=== PATIENT | female | born 1985 | race Caucasian/White ===

== ENCOUNTER 2016-10-20 19:25 | Inpatient (IN) | payer OTHER ==
[2016-10-20 20:59] LABS: BASOPHIL 0.5 % (0-2.0); EOSINOPHIL 0.7 % (0-4.5); MCH 32.6 pg (25.7-33.7); MCHC 34.4 g/dl (32.0-36.0); MEAN CELL VOLUME 94.7 fl (80-96); MEAN PLT VOLUME 8.5 fl (7.5-11.1); NEUTROPHILS 65.8 % (42.8-82.8); PLATELET COUNT 213 K/MM3 (134-434); RDW 14.1 % (11.6-15.6); WHITE BLOOD COUNT 10.6 K/mm3 (4.0-10.0)
[2016-10-20] MEDS ORDERED: DINOPROSTONE 10 MG VAGINAL SUPPOSITORY VG ONE (21:00)
[2016-10-20] MEDS ORDERED: ELECTROLYTE-148 SOLN 1,000 ML IV SCH (21:00)
[2016-10-20 21:18] LABS: ACTIVATED PTT 30.6 SECONDS (26.9-34.4)
[2016-10-20 21:29] LABS: ANION GAP 10 (8-16); CALCIUM 8.8 mg/dL (8.5-10.1); CO2 22 mmol/L (21-32); CREATININE 0.5 mg/dL (0.55-1.02); GLUCOSE,RANDOM 80 mg/dL (74-106)
[2016-10-20 21:38] VITALS: BMI 39.8
[2016-10-20] MEDS ORDERED: TUBERCULIN PPD 5 TU/0.1ML SYRINGE (IN PATIENT USE ONLY) ID ONE (21:45)
--- NOTE | 2016-10-21 01:40 | HP ---
Past Medical History - Admission Chief Complaint: Elective induction History of Present Illness: 31 yo @ 39 weeks gestation with GDMA2 admitted for induction of labor. She has no complaints. History Source: Patient Limitations to Obtaining History: No Limitations - Past Medical History ...: 3 ...Para: 1 ...Term: 1 ...: 0 ...Spon : 1 ...Induced : 0 ...Multiple Gestation: 0 ... Weeks Gestation by Dates: 39.3 ...EDC by Dates: 10/24/16 ...EDC by Sono: 10/27/16 - Past Surgical History Past Surgical History: Yes: None Hx Myomectomy: No Hx Transabdominal Cerclage: No - Smoking History Smoking history: Never smoked Have you smoked in the past 12 months: No - Alcohol/Substance Use Hx Alcohol Use: No History of Substance Use: reports: None - Social History Usual Living Arrangement: Yes: With Spouse History of Recent Travel: No Home Medications - Allergies Allergies/Adverse Reactions: Allergies Allergy/AdvReac Type Severity Reaction Status Date / Time No Known Allergies Allergy Verified 03/06/16 15:36 - Home Medications Home Medications: Ambulatory Orders Glyburide 2.5 mg PO ACDIN 10/13/16 Vit/Iron Fumarate/FA [ Tablet] 1 tablet PO DAILY 10/20/16 Family Disease History - Family Disease History Family History: Unremarkable Review of Systems - Review of Systems Constitutional: reports: No Symptoms Eyes: reports: No Symptoms HENT: reports: No Symptoms Neck: reports: No Symptoms Cardiovascular: reports: No Symptoms Respiratory: reports: No Symptoms Gastrointestinal: reports: No Symptoms Genitourinary: reports: No Symptoms Breasts: reports: No Symptoms Reported Musculoskeletal: reports: No Symptoms Integumentary: reports: No Symptoms Neurological: reports: No Symptoms Endocrine: reports: No Symptoms Hematology/Lymphatic: reports: No Symptoms Psychiatric: reports: No Symptoms Pain Intensity: 0 Physical Exam - Maternity Vital Signs: Vital Signs Temperature 98.4 F 10/20/16 22:00 Pulse Rate 86 10/20/16 22:00 Respiratory Rate 20 10/20/16 22:00 Blood Pressure 97/55 10/20/16 22:00 O2 Sat by Pulse Oximetry (%) Constitutional: Yes: Well Nourished Eyes: Yes: Conjunctiva Clear HENT: Yes: Atraumatic Neck: Yes: Supple, Trachea Midline Cardiovascular: Yes: Regular Rate and Rhythm Lungs: Clear to auscultation - Abdominal Exam/OB Number of Fetuses: Single Presentation: Vertex - Physical Exam Psychiatric: Yes: Alert, Oriented - Labs Lab Results: CBC, BMP 10/20/16 20:45 10/20/16 20:45 Problem List - Problems (1) Gestational diabetes mellitus (GDM) affecting , antepartum Code(s): O24.919 - UNSP DIABETES MELLITUS IN , UNSPECIFIED TRIMESTER Assessment/Plan IUP @ 39 weeks GDMA2 Admit for induction of labor
[2016-10-21] MEDS ORDERED: ELECTROLYTE-148 SOLN 1,000 ML IV SCH (01:45)
--- NOTE | 2016-10-21 08:36 | PN ---
Progress Note (short form) - Note Progress Note: Patient seen and evaluated, she c/o mild discomfort. Cervidil is in place. FHR : Reassuring VE : / -2 A/P : IUP @ 39 weeks GDMA 2 Remove Cervidil in 1 hr and start Pitocin at 10 am Continue BGM Q 4 hrs Anticipate Problem List - Problems (1) Gestational diabetes mellitus (GDM) affecting , antepartum Code(s): O24.919 - UNSP DIABETES MELLITUS IN , UNSPECIFIED TRIMESTER
[2016-10-21] MEDS ORDERED: OXYTOCIN 15 UNITS/ LR 250 ML 250 ML IV SCH (14:00)
[2016-10-21] MEDS ORDERED: PROMETHAZINE HCL 25 MG/1 ML VIAL IVPB ONE (16:45)
[2016-10-21] MEDS ORDERED: BUTORPHANOL TARTRATE 1 MG/ML VIAL IVPB ONE (16:45)
[2016-10-21] MEDS ORDERED: IBUPROFEN 600 MG TABLET (FP) PO PRN (18:35)
[2016-10-21] MEDS ORDERED: WITCH HAZEL 50% (TUCKS) 40 PAD/JAR PAD TP PRN (18:35)
[2016-10-21] MEDS ORDERED: BISACODYL 10 MG SUPP.RECT RC PRN (18:35)
[2016-10-21] MEDS ORDERED: oxyCODONE HCL 5 MG TABLET PO PRN (18:35)
[2016-10-21] MEDS ORDERED: BENZOCAINE 20% 57 GM BOTTLE TP PRN (18:35)
[2016-10-21] MEDS ORDERED: BENZOCAINE 28 GM HEMORRHOIDAL OINTMENT TP PRN (18:35)
[2016-10-21] MEDS ORDERED: METHYLERGONOVINE MALEATE 0.2 MG/1 ML AMP IM PRN (18:35)
[2016-10-21] MEDS ORDERED: D5W-LR W/ 20 UNITS OXYTOCIN 1,000 ML IV SCH (18:45)
--- NOTE | 2016-10-21 19:06 | PN ---
Delivery - Delivery Vaginal Delivery: Spontaneous Type of Anesthesia: Local Delivery, Single - Feeding Plan Initial Plan: Elected not to breastfeed exclusively throughout hospitalization Remarks - Remarks Remarks: Normal spontaneous vaginal delivery of a live infant boy. Nose / Oropharynx suctioned @ perineum. Cord clamped and cut. Placenta expelled spontaneously intact. Mother in stable condition.
[2016-10-21 19:11] LABS: ARTERIAL BLD GAS O2 SATURATION 24.3 % (90-98.9); ARTERIAL BLOOD GAS BASE EXCESS -1.7 meq/l (-2-2); ARTERIAL BLOOD GAS HCO3 26.7 meq/L (22-26); ARTERIAL BLOOD GAS PO2 17.3 mmHg (80-100); ARTERIAL BLOOD GAS pH 7.26 (7.35-7.45)
[2016-10-21 19:12] LABS: ART PUNCT SITE OTHER; LPM/O2% 21%; PT. ON O2? NO
[2016-10-21 19:23] LABS: VENOUS PH 7.33 (7.32-7.42)
[2016-10-21 19:24] LABS: VENOUS BLOOD GAS HCO3 24.4 meq/L (19-25)
[2016-10-21] MEDS: ACETAMINOPHEN 325 MG TABLET (FP) PO PRN (22:23)
[2016-10-21] MEDS: FERROUS SO4 325 MG TABLET (FP) PO SCH (22:24)
[2016-10-22 08:20] LABS: BASOPHIL 0.3 % (0-2.0); EOSINOPHIL 0.4 % (0-4.5); MCH 31.4 pg (25.7-33.7); MCHC 33.3 g/dl (32.0-36.0); MEAN CELL VOLUME 94.4 fl (80-96); MEAN PLT VOLUME 8.3 fl (7.5-11.1); NEUTROPHILS 73.4 % (42.8-82.8); PLATELET COUNT 167 K/MM3 (134-434); WHITE BLOOD COUNT 16.1 K/mm3 (4.0-10.0)
[2016-10-22] MEDS: FERROUS SO4 325 MG TABLET (FP) PO SCH ×2 (10:00→22:10)
[2016-10-22] MEDS: PRENATAL VITAMINS W/ FOLIC ACID TABLET (FP) PO SCH (10:00)
[2016-10-22] MEDS ORDERED: DIPHTH,PERTUSS(ACELL),TET 0.5 ML DISP.SYRIN IM ONE (15:00)
--- NOTE | 2016-10-22 16:10 | PN ---
Post Progress Note - Subjective Subjective: 31 yo Para 2 status post , seen and evaluated. She's doing well, no complaints. Post Day: 1 Type of Delivery: Vital Signs: Vital Signs Temperature 98.4 F 10/22/16 14:03 Pulse Rate 93 H 10/22/16 14:03 Respiratory Rate 20 10/22/16 14:03 Blood Pressure 94/51 10/22/16 14:03 O2 Sat by Pulse Oximetry (%) Breast Exam: Yes: Soft Uterus: Yes: Fundus Firm Abdomen/GI: Yes: Abdomen soft, Tolerating PO Lochia: Yes: Rubra Lochia, amount: Moderate Extremities: Yes: Calves non-tender Activity: Ambulating - Labs Labs: CBC WBC 16.1 K/mm3 (4.0-10.0) H D 10/22/16 07:51 RBC 4.15 M/mm3 (3.60-5.2) 10/22/16 07:51 Hgb 13.0 GM/dL (10.7-15.3) 10/22/16 07:51 Hct 39.2 % (32.4-45.2) 10/22/16 07:51 MCV 94.4 fl (80-96) 10/22/16 07:51 MCH 31.4 pg (25.7-33.7) 10/22/16 07:51 MCHC 33.3 g/dl (32.0-36.0) 10/22/16 07:51 RDW 14.0 % (11.6-15.6) 10/22/16 07:51 Plt Count 167 K/MM3 (134-434) D 10/22/16 07:51 MPV 8.3 fl (7.5-11.1) 10/22/16 07:51 Neutrophils % 73.4 % (42.8-82.8) 10/22/16 07:51 Lymphocytes % 18.1 % (8-40) D 10/22/16 07:51 Monocytes % 7.8 % (3.8-10.2) 10/22/16 07:51 Eosinophils % 0.4 % (0-4.5) 10/22/16 07:51 Basophils % 0.3 % (0-2.0) 10/22/16 07:51 Problem List - Problems (1) Gestational diabetes mellitus (GDM) affecting , antepartum Code(s): O24.919 - UNSP DIABETES MELLITUS IN , UNSPECIFIED TRIMESTER (2) Status post normal vaginal delivery Code(s): [id number] - Assessment/Plan Status post vaginal delivery Stable Continue care
--- NOTE | 2016-10-22 16:14 | DS ---
Physical Exam-CALL CENTER SUPPORT CONSULTANT Vital Signs: Vital Signs Temperature 98.4 F 10/22/16 14:03 Pulse Rate 93 H 10/22/16 14:03 Respiratory Rate 20 10/22/16 14:03 Blood Pressure 94/51 10/22/16 14:03 O2 Sat by Pulse Oximetry (%) Constitutional: Yes: Well Nourished Eyes: Yes: WNL HENT: Yes: WNL Neck: Yes: Supple Cardiovascular: Yes: Regular Rate and Rhythm Respiratory: Yes: Regular, CTA Bilaterally Gastrointestinal: Yes: Normal Bowel Sounds Vaginal Exam: Yes: Normal Cervix: Yes: Normal Uterus: Yes: Firm ....Post : Yes: Uterus firm, Moderate lochia rubra Breast(s): Yes: WNL Integumentary: Yes: WNL Neurological: Yes: Alert, Oriented ...Motor Strength: WNL Psychiatric: Yes: Alert, Oriented Labs: CBC, BMP 10/22/16 07:51 10/20/16 20:45 Delivery - Delivery Vaginal Delivery: Spontaneous Type of Anesthesia: Local Episiotomy/Laceration: Perineal Extension/lac, 1st degree EBL (cc): 300 Delivery, Single - Stages of Labor Date 1st Stage Initiatied: 10/21/16 Time 1st Stage Initiated: 14:00 Date 2nd Stage Initiated: 10/21/16 Time 2nd Stage Initiated: 17:40 Date of Delivery: 10/21/16 Time of Delivery: 18:04 Time Placenta Delivered: 18:10 - Condition of Basket Weaver/Delivery Table Operator Present: No Gender: Male Weight: 7 lb 15 oz Position: Left, OA Total Hours ROM (Hrs/Mins): 2HRS 10MIN - 1 Minute Total Score: 9 5 Minutes Total Score: 9 - [place] Feeding Plan Initial Plan: Elected not to breastfeed exclusively throughout hospitalization Discharge Summary Reason For Visit: ADMIT-INDUCTION Current Active Problems Gestational diabetes mellitus (GDM) affecting , antepartum (Acute) Status post normal vaginal delivery (Acute) Procedures: Principal: Normal spontaneous vaginal delivery Hospital Course: Routine care - Instructions Diet, Activity, Other Instructions: Regular diet No douching, no sexual intercourse x 6 weeks F/U with MD in 6 weeks Disposition: HOME - Home Medications Comprehensive Discharge Medication List: Ambulatory Orders Glyburide 2.5 mg PO ACDIN 10/13/16 Vit/Iron Fumarate/FA [ Tablet] 1 tablet PO DAILY 10/20/16
[2016-10-22] MEDS ORDERED: SENNOSIDES/DOCUSATE COMBO (SENNA PLUS) TABLET (UD) PO PRN (22:00)
[2016-10-23] MEDS: PRENATAL VITAMINS W/ FOLIC ACID TABLET (FP) PO SCH (10:57)
[2016-10-23] MEDS: FERROUS SO4 325 MG TABLET (FP) PO SCH (10:57)
[2016-10-23] MEDS: ACETAMINOPHEN 325 MG TABLET (FP) PO PRN (10:57)
[2016-10-23 14:42] VITALS: BP 123/57; PULSE 80; TEMP 98.4
== END 2016-10-23 12:45 | disposition home or self-care (01) | DRG 560 ==
LOC: JLDR 19:25 → J3W 10-21 20:30
PROVIDERS: ADMIT Obstetrics & Gynecology; ATTEND Obstetrics & Gynecology
PROC: 10E0XZZ Delivery of Products of Conception, External Approach (ICD-10-PCS; principal; 2016-10-21)
PROC: 0HQ9XZZ Repair Perineum Skin, External Approach (ICD-10-PCS; 2016-10-21)
PROC: 3E0P7GC Introduction of Other Therapeutic Substance into Female Reproductive, Via Natural or Artificial Opening (ICD-10-PCS; 2016-10-21)
DX: O24.425 Gestational diabetes mellitus in childbirth, controlled by oral hypoglycemic drugs (principal); O70.0 First degree perineal laceration during delivery; E66.8 Other obesity; Z68.39 Body mass index [BMI] 39.0-39.9, adult; Z3A.39 39 weeks gestation of pregnancy; Z37.0 Single live birth
CPT/HCPCS: 36415; 36600; 59409; 80048; 82803; 85025; 85610; 85730; 86593; 86850; 86900; 86901; 90715

== ENCOUNTER 2017-09-17 15:29 | Emergency (ER) | payer OTHER ==
[2017-09-17 15:33] VITALS: BP 102/63; BMI 35.4
--- NOTE | 2017-09-17 16:05 | PDOC ---
History of Present Illness - General Chief Complaint: Sore Throat Stated Complaint: FEVER, THROAT PAIN Time Seen by Provider: 09/17/17 15:36 History Source: Patient Exam Limitations: Clinical Condition - History of Present Illness Initial Comments: 09/17/17 16:00 Patient with no sig PmhX present with complains of sore throat and fever for 3 days which started to worsen yesterday. report very painful to swallow. report fever of 103F this AM and still has fever now. pt also report abdominal discomfort with nausea since yesterday. Denies cough, SOB, ear pains, dizziness , LOC, palpitations. Timing/Duration: other (3) Severity: moderate Modifying Factors: improves with: other (nothing) Associated Symptoms: reports: fever/chills, headaches, nausea/vomiting. denies : chest pain, cough, loss of appetite, shortness of breath Aspirin Received prior to arrival: Yes: no aspirin today Past History - Past Medical History Allergies/Adverse Reactions: Allergies Allergy/AdvReac Type Severity Reaction Status Date / Time No Known Allergies Allergy Verified 09/17/17 15:33 Home Medications: Ambulatory Orders Amox-Tr/K Cl [Augmentin - 875Mg Tablet] 1 tab PO BID #14 tablet 09/17/17 Ibuprofen 800 mg PO TID PRN #20 tablet 09/17/17 Asthma: No Cancer: No Cardiac Disorders: No COPD: No Diabetes: Yes (GESTATIONAL DIABETES ON GLYBURIDE) HTN: No Seizures: No Thyroid Disease: No - Suicide/Smoking/Psychosocial Hx Smoking History: Never smoked Have you smoked in the past 12 months: No Hx Alcohol Use: No Drug/Substance Use Hx: No Substance Use Type: None Hx Substance Use Treatment: No Review of Systems - Review of Systems Constitutional: Yes: Chills, Fever, Malaise. No: Loss of Appetite, Night Sweats , Weakness, Unexplained wgt Loss HEENTM: Yes: Throat Pain, Throat Swelling. No: Eye Pain, Blurred Vision, Tearing, Recent change in vision, Double Vision, Cataracts, Ear Pain, Ocular Prothesis, Ear Discharge, Nose Pain, Nose Congestion, Tinnitus, Nose Bleeding, Hearing Loss, Mouth Pain, Dental Problems, Difficulty Swallowing, Mouth Swelling , Other Respiratory: No: Cough, Orthopnea, Shortness of Breath, SOB with Exertion, SOB at Rest, Stridor, Wheezing, Productive cough, Hemoptysis, Other Cardiac (ROS): No: Chest Pain, Edema, Irregular Heart Rate, Lightheadedness, Palpitations, Syncope, Chest Tightness, Other ABD/GI: Yes: Difficulty Swallowing, Nausea. No: Diarrhea, Rectal Bleeding, Tarry Stools : No: Burning, Frequency, Hematuria, Urgency Musculoskeletal: No: Back Pain, Gout, Joint Pain, Joint Swelling, Muscle Pain, Muscle Weakness, Neck Pain, Joint Stiffness, Other Integumentary: No: Bruising, Change in Color, Change in Hair/Nails, Dryness, Erythema, Flushing, Lesions, Lumps, Pallor, Pruritus, Rash, Sweating, Other Neurological: No: Headache, Numbness, Paresthesia, Pre-Existing Deficit, Seizure , Tingling, Tremors, Weakness, Unsteady Gait, Ataxia, Dizziness, Other Endocrine: No: Excessive Sweating, Flushing, Intolerance to Cold, Intolerance to Heat, Increased Hunger, Increased Thirst, Increased Urine, Unexplained Weight Gain, Unexplained Weight Loss, Change in Weight Hematologic/Lymphatic: No: Anemia, Blood Clots, Easy Bleeding, Easy Bruising, Bleeding Diathesis, Lymph Node Abnormalities, Swollen Glands, Other *Physical Exam - Vital Signs Last Vital Signs Temp Pulse Resp BP Pulse Ox 103.0 F H 121 H 20 102/63 99 09/17/17 15:31 09/17/17 15:31 09/17/17 15:31 09/17/17 15:31 09/17/17 15:31 - Physical Exam General Appearance: Yes: Nourished, Appropriately Dressed, Mild Distress HEENT: positive: EOMI, JANNA, Normal Voice, Pharyngeal Erythema (moderate), Tonsillar Exudate (b/l), Tonsillar Erythema, Nasal Congestion, Hearing Grossly Normal. negative: TM Bulging, TM Dull, TM Erythema Neck: positive: Trachea midline, Supple Respiratory/Chest: positive: Lungs Clear, Normal Breath Sounds. negative: Chest Tender, Respiratory Distress, Accessory Muscle Use Cardiovascular: positive: Regular Rhythm, Regular Rate, S1, S2 Gastrointestinal/Abdominal: positive: Normal Bowel Sounds, Soft. negative: Tender, Organomegaly Musculoskeletal: positive: Normal Inspection Extremity: positive: Normal Inspection Integumentary: positive: Normal Color Neurologic: positive: Fully Oriented, Alert, Normal Mood/Affect, Normal Response Medical Decision Making - Medical Decision Making 09/17/17 16:05 Patient with 3 days h/o sore throat, fever and abdominal symptoms. likely strep pharyngitis vs tonsillitis . rapid strep and throat cx sent. Tylenol 1g for fever. reassess in few mins 09/17/17 16:24 Patient positive for strep A. d/c home on Augmentin Abx and motrin with PCP follow-up *DC/Admit/Observation/Transfer Diagnosis at time of Disposition: Pharyngitis Qualifiers: Pharyngitis/tonsillitis etiology: streptococcus Qualified Code(s): J02.0 - Streptococcal pharyngitis Fever Qualifiers: Fever type: unspecified Qualified Code(s): R50.9 - Fever, unspecified - Discharge Dispostion Disposition: HOME Condition at time of disposition: Stable Decision to Admit order: No - Prescriptions Prescriptions: Amox-Tr/K Cl [Augmentin - 875Mg Tablet] 1 tab PO BID #14 tablet Ibuprofen 800 mg PO TID PRN #20 tablet PRN Reason: fever and headache - Referrals Referrals: Gilbert Ambrose MD [Staff Physician] - - Patient Instructions Printed Discharge Instructions: Strep Throat, DI for Strep Throat Additional Instructions: Take medication as prescribed. alternate tylenol and motrin for headache and fever. follow-up with PCP - Post Discharge Activity Forms/Work/School Notes: Back to Work
[2017-09-17 16:37] VITALS: PULSE 105; TEMP 102.5
== END 2017-09-17 16:37 | disposition home or self-care (01) ==
LOC: JERFT 15:29
DX: J02.0 Streptococcal pharyngitis (principal); B95.0 Streptococcus, group A, as the cause of diseases classified elsewhere
CPT/HCPCS: 87070; 87077; 87430; 99281-25